=== PATIENT | female | born 1960 | race Two or more races ===

== ENCOUNTER 2023-12-16 07:00 | Day surgery (SDC) | payer OTHER ==
[~2023-12-16 07:00] MED LIST: RINGERS SOLUTION,LACTATED 1,000 ML IV ONE
[2023-12-16] MEDS ORDERED: SODIUM CHLORIDE 0.9% 0 ML ONE (07:23)
[2023-12-16] MEDS ORDERED: MIDAZOLAM HCL 2 MG/2 ML VIAL ONE (08:07)
[2023-12-16] MEDS ORDERED: FentaNYL CITRATE PF 100 MCG/2 ML VIAL ONE (08:07)
[2023-12-16] MEDS: SODIUM CHLORIDE 0.9% 1,000 ML IV ONE (08:28)
[2023-12-16 10:00] VITALS: PULSE 59; RESP 20; O2SAT 96
[2023-12-16] MEDS ORDERED: MethylPREDNISolone SOD SUCC 125 MG/2 ML VIAL ONE (10:33)
[2023-12-16] MEDS: MethylPREDNISolone SOD SUCC 125 MG/2 ML VIAL IVP ONE (10:57)
[2023-12-16] MEDS ORDERED: BENZOCAINE 20% 50 MCG/SPRAY 57 GM TP ONE (12:00)
[2023-12-16] MEDS ORDERED: LIDOCAINE 4% 50 ML SOLUTION TP ONE (12:00)
[2023-12-16] MEDS ORDERED: LIDOCAINE 2% 11 ML JELLY TP ONE (12:00)
[2023-12-16] MEDS ORDERED: ALBUTEROL SULFATE 2.5 MG/0.5 ML NEB SOLUTION NEB ONE (12:00)
== END 2023-12-16 14:00 | disposition home or self-care (01) ==
LOC: SURGERY 07:00
PROVIDERS: ATTEND Internal Medicine Critical Care Medicine
DX: R05.3 Chronic cough (principal); R06.2 Wheezing; R49.0 Dysphonia; R06.1 Stridor; J38.4 Edema of larynx; B37.0 Candidal stomatitis
CPT/HCPCS: 31623; 87206; 87101; 87220; 87070; 88108; 31624; 71045; 87015; J3010; J2250; J2919; J7030; J7613; Z7610